=== PATIENT | female | born 1990 | race Two or more races ===

== ENCOUNTER 2018-10-21 15:13 | Emergency (ER) | payer OTHER ==
[~2018-10-21] VITALS: Ht 165.1 cm; Wt 60.0 kg
[2018-10-21] MEDS ORDERED: BENZ1TAB7 GT (15:25)
[2018-10-21 20:54] LABS: CLARITY URINE CLOUDY (CLEAR); COLOR URINE DARK YELLOW (YELLOW); KETONES URINE 2+ (NEGATIVE); LEUKOCYTE ESTERASE URINE NEGATIVE (NEGATIVE); NITRITE URINE NEGATIVE (NEGATIVE); OCCULT BLOOD URINE 3+ (NEGATIVE); PROTEIN URINE 1+ (NEGATIVE); SPECIFIC GRAVITY URINE 1.042 (1.005-1.030)
[2018-10-21 21:12] LABS: METHADONE URINE SCREEN NEGATIVE (NEGATIVE); OPIATES URINE SCREEN NEGATIVE (NEGATIVE)
[2018-10-21 21:13] LABS: *AMPHETAMINES SCREEN URINE NEGATIVE (NEGATIVE); *BARBITURATES SCREEN URINE NEGATIVE (NEGATIVE); *BENZODIAZEPINES SCREEN URINE NEGATIVE (NEGATIVE); *COCAINE SCREEN URINE NEGATIVE (NEGATIVE); CANNABINOID URINE SCREEN NEGATIVE (NEGATIVE); PHENCYCLIDINE URINE SCREEN NEGATIVE (NEGATIVE)
[2018-10-21] MEDS ORDERED: ACETAMINOPHEN 500MG TABLET PO NR (21:45)
[2018-10-22 00:08] LABS: BASOPHILS % 0.5 % (0.0-2.0); EOSINOPHILS % 0.4 % (0.0-5.0); HEMATOCRIT. 38.3 % (36.0-48.0); HEMOGLOBIN. 12.7 g/dL (12.0-16.0); LYMPHOCYTES % 31.5 % (20.0-50.0); MEAN CORPUSCULAR HEMOGLOBIN 28.2 pg (28.0-32.0); MEAN CORPUSCULAR VOLUME 84.9 fL (81.0-99.0); MEAN PLATELET VOLUME 9.6 fl (7.4-10.4); MONOCYTES % 8.5 % (2.0-8.0); NEUTROPHILS % 59.1 % (40.0-76.0); PLATELET 286 x1000/uL (130-400); RED BLOOD CELL COUNT 4.52 mill/uL (4.2-5.4); RED CELL DISTRIBUTION WIDTH 13.3 % (11.6-14.6)
[2018-10-22 00:14] LABS: CHLORIDE 106 mEq/L (98-107)
[2018-10-22 00:21] LABS: ETHANOL BLOOD < 10 mg/dL
[2018-10-22 02:04] LABS: HEPATITIS B SURFACE ANTIGEN NEGATIVE
[2018-10-22 02:34] LABS: HEPATITIS A AB IGM NEGATIVE (NEGATIVE)
[2018-10-22 02:43] VITALS: BP 108/66
== END 2018-10-22 02:43 | disposition home or self-care (01) ==
LOC: ER 15:13
DX: S69.81XA Other specified injuries of right wrist, hand and finger(s), initial encounter (principal); T76.21XA Adult sexual abuse, suspected, initial encounter; M25.571 Pain in right ankle and joints of right foot; F20.9 Schizophrenia, unspecified; F31.9 Bipolar disorder, unspecified; Y93.89 Activity, other specified; Y92.89 Other specified places as the place of occurrence of the external cause; Y99.8 Other external cause status
CPT/HCPCS: 36415; 73130; 73610; 80048; 80076; 80305; 80307; 80329; 81003; 85025; 86703; 87086; 99284; G0482; 86705; 86709; 86803; 87340